=== PATIENT | male | born 1940 | race Caucasian/White ===

== ENCOUNTER 2016-11-26 00:21 | Emergency (ER) | payer OTHER ==
[~2016-11-26] VITALS: Ht 175.3 cm; Wt 95.3 kg
[2016-11-26 00:21] VITALS: BP_SYST 159
--- NOTE | 2016-11-26 00:22 | NUR ---
Patient to ED for evaluation of bleeding from surgical site. Patient to bed 8 to await MD evaluation.
--- NOTE | 2016-11-26 00:25 | NUR ---
Dr Stubbs at bedside to evaluate patient.
--- NOTE | 2016-11-26 00:30 | NUR ---
Patient to ER via triage with c/o bleeding from surgical site on right sidep of nose. Patient reports that he had a Mohs procedure done on Sunday. Patient states he woke up this evening and noticed the bleeding, no c/o pain. Dr Stubbs has seen and evaluated patient, dressing was applied to site by Dr/EMT. Patient resting quietly in nad, awaiting dispo. Will continue to observe and assess.
--- NOTE | 2016-11-26 01:10 | NUR ---
Patient given written and verbal discharge instructions and verbalizes understanding. ER MD discussed with patient the results and treatment provided. Patient in stable condition. ID arm band removed. Rx of Tramadol given. Patient educated on pain management and to follow up with PMD. Pain Scale 0. Opportunity for questions provided and answered.
[2016-11-26 01:17] VITALS: BP_SYST 127
== END 2016-11-26 01:17 | disposition home or self-care (01) ==
LOC: SED 00:21
DX: J95.831 Postprocedural hemorrhage of a respiratory system organ or structure following other procedure (principal); R03.0 Elevated blood-pressure reading, without diagnosis of hypertension; E11.9 Type 2 diabetes mellitus without complications; M54.30 Sciatica, unspecified side
CPT/HCPCS: 99283

== ENCOUNTER 2019-11-28 11:34 | Inpatient (IN) | payer OTHER, SELFPAY ==
[~2019-11-28] VITALS: Ht 175.3 cm; Wt 98.4 kg
[~2019-11-28 11:34] MED LIST: ATOR-1 PO; GLIP10TA11 PO; LISI40TA4 PO; LORA-258 PO; METF750T PO; METO100T14 PO; NPH,100V SUBCUT; OMEP20CA15 PO; PRAM1TAB4 PO; PRIM250T32 PO
[2019-11-28 11:39] VITALS: BP_SYST 178
[2019-11-28] MEDS ORDERED: ASPIRIN 81 MG TAB.CHEW PO ONE (12:00)
[2019-11-28] MEDS ORDERED: FAMOTIDINE PF 20 MG/2 ML VIAL IVP ONE (12:00)
[2019-11-28] MEDS ORDERED: NACL 0.9% 1,000 ML IV ONE (12:00)
[2019-11-28] MEDS ORDERED: fentaNYL CITRATE/PF 100 MCG/2 ML AMP IVP ONE ×2 (12:00→15:45)
[2019-11-28] MEDS ORDERED: CINSULIN (12:01)
[2019-11-28] MEDS ORDERED: AMIO200T4 PO (12:01)
[2019-11-28] MEDS ORDERED: FLUT250D PO (12:01)
[2019-11-28] MEDS ORDERED: GLIP5TAB26 PO (12:01)
[2019-11-28] MEDS ORDERED: METF750T46 PO (12:01)
[2019-11-28] MEDS ORDERED: ALBU90AE PO (12:01)
[2019-11-28] MEDS ORDERED: FURO-149 PO (12:01)
[2019-11-28] MEDS ORDERED: VITD2000 PO (12:01)
[2019-11-28] MEDS ORDERED: CYAN500L3 (12:01)
[2019-11-28] MEDS ORDERED: PRIM250T PO (12:01)
[2019-11-28] MEDS ORDERED: FERR-69 PO (12:01)
[2019-11-28] MEDS ORDERED: LEVO25TA11 PO (12:01)
[2019-11-28] MEDS ORDERED: CLOP75TA2 PO (12:01)
[2019-11-28] MEDS ORDERED: LISI40TA4 PO (12:01)
[2019-11-28] MEDS ORDERED: ROSU40TA23 PO (12:01)
[2019-11-28] MEDS ORDERED: METO200T49 PO (12:01)
[2019-11-28] MEDS ORDERED: NPH,100I SQ (12:01)
[2019-11-28] MEDS ORDERED: PRAM1TAB4 PO (12:01)
[2019-11-28 12:06] LABS: BASOPHILS # (AUTO) 0.1 K/uL (0.0-0.2); EOSINOPHILS # (AUTO) 0.1 K/uL (0.0-0.4); HEMATOCRIT 31.9 % (36-54); HEMOGLOBIN 10.6 g/dL (14.0-18.0); LYMPHOCYTES # (AUTO) 0.8 K/uL (1.0-5.5); LYMPHOCYTES % (AUTO) 7.8 % (20.5-51.5); MEAN CORPUSCULAR HEMOGLOBIN 31 pg (27-31); MEAN CORPUSCULAR HGB CONC 33 % (32-36); MEAN CORPUSCULAR VOLUME 93 fL (79.0-98.0); MONOCYTES # (AUTO) 0.7 K/uL (0.0-1.0); MONOCYTES % (AUTO) 6.4 % (1.7-9.3); NEUTROPHILS # (AUTO) 9.1 K/uL (1.8-7.7); NEUTROPHILS % (AUTO) 83.8 % (40.0-70.0); PLATELET COUNT (AUTO) 210 K/uL (130-430); RED BLOOD CELL COUNT(AUTO) 3.44 MIL/uL (4.2-6.2); RED CELL DISTRIBUTION WIDTH 16.4 % (9.0-15.0); WHITE BLOOD COUNT (AUTO) 10.8 K/uL (4.8-10.8)
[2019-11-28 12:26] LABS: ANION GAP 11 (5-15); CALCIUM 9.1 mg/dL (8.4-11.0); CHLORIDE 100 mmol/L (98-107); CREATININE 1.29 mg/dL (0.55-1.30); GLUCOSE 233 mg/dL (70-99); POTASSIUM 4.3 mmol/L (3.5-5.1); SODIUM SERUM 135 mmol/L (136-145); UREA NITROGEN, BLOOD 28 mg/dL (8-21)
[2019-11-28 12:32] LABS: ALANINE AMINOTRANSFERASE 31 U/L (12-78); ALBUMIN 3.7 g/dL (3.4-4.8); ASPARTATE AMINOTRANSFERASE 21 U/L (10-37); LIPASE 133 U/L (73-393); TOTAL BILIRUBIN 0.3 mg/dL (0.0-1.0)
[2019-11-28 12:53] LABS: BILIRUBIN,URINE NEGATIVE (NEGATIVE); BLOOD, URINE 1+ (NEGATIVE); CLARITY/URINE CLEAR (CLEAR); COLOR,URINE YELLOW (YELLOW); GLUCOSE,URINE 2+ (NEGATIVE); KETONES,URINE NEGATIVE (NEGATIVE); LEUKOCYTE ESTERASE ,URINE NEGATIVE (NEGATIVE); NITRITE, URINE NEGATIVE (NEGATIVE); PROTEIN URINE 2+ (NEGATIVE); UROBILINOGEN,URINE 0.2 (0.2-1.0)
[2019-11-28] MEDS ORDERED: MAG HYDROX/AL HYDROX/SIMETH 30 ML, DICYCLOMINE HCL 20 MG, LIDOCAINE VISCOUS 2% 15ML (PO... PO ONE ×6 (13:15)
[2019-11-28 13:22] LABS: BACTERIA,URINE None Seen /HPF (None Seen); RBC,URINE 0-3 /HPF (0-3); TRICHOMONAS,URINE None Seen /HPF (None Seen); WBC,URINE NONE SEEN /HPF (0-3); YEAST,URINE None Seen /HPF (None Seen)
[2019-11-28] MEDS ORDERED: METOPROLOL TARTRATE 5 MG/5 ML VIAL IVP ONE (16:00)
[2019-11-28] MEDS ORDERED: MORPHINE 4 MG/ML INJ. SYRINGE IVP PRN (19:15)
[2019-11-28] MEDS ORDERED: ALBUTEROL SULFATE 0.083% 2.5 MG/3 ML VIAL.NEB INH PRN (19:15)
[2019-11-28] MEDS ORDERED: ACETAMINOPHEN 325 MG TABLET PO PRN (19:15)
[2019-11-28] MEDS ORDERED: NALOXONE HCL 0.4 MG/ML AMP (NARCAN) IVP PRN (19:15)
[2019-11-28] MEDS ORDERED: hydrALAZINE HCL 20 MG/ML VIAL IVP PRN (19:30)
[2019-11-28 20:00] VITALS: BP_SYST 174
[2019-11-28 20:10] VITALS: BP_SYST 183
[2019-11-28 20:53] VITALS: BP_SYST 183
[2019-11-28] MEDS ORDERED: cefTRIAXone 1 GM IVPB PREMIX 50 ML IV ONE (21:19)
[2019-11-28] MEDS: PRAMIPEXOLE DI-HCL 0.25 MG TABLET PO SCH (21:26)
[2019-11-28] MEDS: cefTRIAXone 1 GM IVPB PREMIX 50 ML IV SCH (21:27)
[2019-11-28] MEDS: NACL 0.9% 1,000 ML IV SCH (21:28)
[2019-11-28] MEDS: INSULIN REGULAR, HUMAN 100 UNITS/ML, 10 ML VIAL (humuLIN R) SUBCUT PRN (21:30)
[2019-11-28] MEDS: MORPHINE 2 MG/ML INJ. SYRINGE IVP PRN (21:54)
[2019-11-28] MEDS: PRIMIDONE 250 MG TABLET PO SCH (21:54)
[2019-11-29] VITALS: BP_SYST 156
[2019-11-29] MEDS ORDERED: AMIODARONE HCL 200 MG TABLET PO ONE (00:15)
[2019-11-29] MEDS ORDERED: ZOLPIDEM TARTRATE 5 MG TABLET PO ONE (00:15)
[2019-11-29] MEDS ORDERED: DILTIAZEM HCL 25 MG/5 ML VIAL IVP ONE ×2 (00:15→04:15)
[2019-11-29 04:00] VITALS: BP_SYST 139
[2019-11-29] MEDS: LEVOTHYROXINE SODIUM 0.025 MG TABLET PO SCH (06:04)
[2019-11-29 06:16] LABS: BASOPHILS # (AUTO) 0.1 K/uL (0.0-0.2); BASOPHILS % (AUTO) 0.6 % (0.0-2.0); EOSINOPHILS # (AUTO) 0.1 K/uL (0.0-0.4); EOSINOPHILS % (AUTO) 0.8 % (0.0-4.0); HEMATOCRIT 32.1 % (36-54); HEMOGLOBIN 10.8 g/dL (14.0-18.0); LYMPHOCYTES # (AUTO) 0.8 K/uL (1.0-5.5); LYMPHOCYTES % (AUTO) 5.3 % (20.5-51.5); MEAN CORPUSCULAR HEMOGLOBIN 31 pg (27-31); MEAN CORPUSCULAR HGB CONC 34 % (32-36); MEAN CORPUSCULAR VOLUME 92 fL (79.0-98.0); MONOCYTES # (AUTO) 1.2 K/uL (0.0-1.0); MONOCYTES % (AUTO) 7.6 % (1.7-9.3); NEUTROPHILS # (AUTO) 13.3 K/uL (1.8-7.7); NEUTROPHILS % (AUTO) 85.7 % (40.0-70.0); PLATELET COUNT (AUTO) 227 K/uL (130-430); RED BLOOD CELL COUNT(AUTO) 3.49 MIL/uL (4.2-6.2); RED CELL DISTRIBUTION WIDTH 16.5 % (9.0-15.0); WHITE BLOOD COUNT (AUTO) 15.5 K/uL (4.8-10.8)
[2019-11-29] MEDS: INSULIN REGULAR, HUMAN 100 UNITS/ML, 10 ML VIAL (humuLIN R) SUBCUT PRN ×4 (06:25→21:34)
[2019-11-29 06:41] LABS: ALANINE AMINOTRANSFERASE 26 U/L (12-78); ALBUMIN 3.4 g/dL (3.4-4.8); ANION GAP 11 (5-15); ASPARTATE AMINOTRANSFERASE 14 U/L (10-37); CALCIUM 8.6 mg/dL (8.4-11.0); CHLORIDE 99 mmol/L (98-107); CREATININE 1.15 mg/dL (0.55-1.30); GLUCOSE 253 mg/dL (70-99); POTASSIUM 4.2 mmol/L (3.5-5.1); SODIUM SERUM 133 mmol/L (136-145); TOTAL BILIRUBIN 0.4 mg/dL (0.0-1.0); UREA NITROGEN, BLOOD 28 mg/dL (8-21)
[2019-11-29 08:10] VITALS: BP_SYST 142
[2019-11-29] MEDS: glipiZIDE XL 5 MG TAB ( GLUCOTROL XL) PO SCH ×2 (08:20→21:19)
[2019-11-29] MEDS: AMIODARONE HCL 200 MG TABLET PO SCH (08:21)
[2019-11-29] MEDS: CLOPIDOGREL BISULFATE 75 MG TABLET PO SCH (08:21)
[2019-11-29] MEDS: METOPROLOL SUCCINATE 50 MG TAB.SR.24H (TOPROL XL) PO SCH (08:21)
[2019-11-29] MEDS: lisinopriL 20 MG TABLET PO SCH (08:21)
[2019-11-29] MEDS: PRAMIPEXOLE DI-HCL 0.25 MG TABLET PO SCH ×2 (08:30→21:19)
[2019-11-29] MEDS ORDERED: PANTOPRAZOLE SODIUM 40 MG/VIAL (PROTONIX) IVP ONE (09:15)
[2019-11-29 11:44] VITALS: BP_SYST 139
[2019-11-29 17:17] VITALS: BP_SYST 150
[2019-11-29 20:00] VITALS: BP_SYST 144
[2019-11-29] MEDS: PRIMIDONE 250 MG TABLET PO SCH (21:19)
[2019-11-29] MEDS: MORPHINE 2 MG/ML INJ. SYRINGE IVP PRN (21:28)
[2019-11-29] MEDS: cefTRIAXone 1 GM IVPB PREMIX 50 ML IV SCH (21:33)
[2019-11-29] MEDS: NACL 0.9% 1,000 ML IV SCH (21:53)
[2019-11-30] VITALS: BP_SYST 132
[2019-11-30] MEDS: NACL 0.9% 1,000 ML IV SCH (03:04)
[2019-11-30] MEDS: LEVOTHYROXINE SODIUM 0.025 MG TABLET PO SCH (06:27)
[2019-11-30] MEDS: INSULIN REGULAR, HUMAN 100 UNITS/ML, 10 ML VIAL (humuLIN R) SUBCUT PRN ×2 (06:27→11:11)
[2019-11-30] MEDS ORDERED: DILTIAZEM HCL 25 MG/5 ML VIAL IVP ONE (07:00)
[2019-11-30] MEDS ORDERED: DILTIAZEM HCL 25 MG/5 ML VIAL ONE (07:15)
[2019-11-30 08:11] VITALS: BP_SYST 140
[2019-11-30] MEDS: AMIODARONE HCL 200 MG TABLET PO SCH (08:20)
[2019-11-30] MEDS: glipiZIDE XL 5 MG TAB ( GLUCOTROL XL) PO SCH (08:21)
[2019-11-30] MEDS: METOPROLOL SUCCINATE 50 MG TAB.SR.24H (TOPROL XL) PO SCH (08:21)
[2019-11-30] MEDS: lisinopriL 20 MG TABLET PO SCH (08:22)
[2019-11-30] MEDS: CLOPIDOGREL BISULFATE 75 MG TABLET PO SCH (08:22)
[2019-11-30] MEDS ORDERED: PANTOPRAZOLE SODIUM 40 MG/VIAL (PROTONIX) IVP SCH (09:00)
[2019-11-30] MEDS: PRAMIPEXOLE DI-HCL 0.25 MG TABLET PO SCH (09:30)
[2019-11-30 11:15] VITALS: BP_SYST 125
[2019-11-30] MEDS ORDERED: DILTIAZEM HCL 120 MG CAP.SR.24H PO ONE (13:00)
[2019-11-30 13:22] VITALS: BP_SYST 119
[2019-11-30] MEDS ORDERED: DILT120C89 PO (14:42)
[2019-11-30] MEDS ORDERED: PRO40 PO (14:42)
[2019-11-30] MEDS ORDERED: METO50TA7 PO (14:44)
[2019-11-30] MEDS ORDERED: LEVO750T45 PO ×2 (14:44→14:46)
[2019-11-30] MEDS ORDERED: APIX5TAB4 PO (14:45)
[2019-11-30] MEDS ORDERED: APIX5TAB PO (14:49)
[2019-11-30 15:09] VITALS: BP_SYST 119
== END 2019-11-30 16:30 | disposition home or self-care (01) | DRG 392 ==
LOC: SED 11:34 → STU 17:37
PROVIDERS: ADMIT Internal Medicine Hospice and Palliative Medicine; ATTEND Internal Medicine Hospice and Palliative Medicine
DX: K29.70 Gastritis, unspecified, without bleeding (principal); K55.9 Vascular disorder of intestine, unspecified; I48.0 Paroxysmal atrial fibrillation; D64.9 Anemia, unspecified; E03.9 Hypothyroidism, unspecified; E11.9 Type 2 diabetes mellitus without complications; E66.01 Morbid (severe) obesity due to excess calories; E78.00 Pure hypercholesterolemia, unspecified; Z20.828 Contact with and (suspected) exposure to other viral communicable diseases; E78.5 Hyperlipidemia, unspecified; G25.0 Essential tremor; I10 Essential (primary) hypertension; I25.10 Atherosclerotic heart disease of native coronary artery without angina pectoris; I45.10 Unspecified right bundle-branch block; K21.0 Gastro-esophageal reflux disease with esophagitis; K42.9 Umbilical hernia without obstruction or gangrene; Z90.49 Acquired absence of other specified parts of digestive tract; Z95.1 Presence of aortocoronary bypass graft; Z68.32 Body mass index [BMI] 32.0-32.9, adult
CPT/HCPCS: 36415; 71045; 80053; 81000-TC; 82550-TC; 82962; 83690-TC; 83880; 84484; 85025; 93005; 94760; 96361; 96374; 96375; 96376; 99285; C9113; G0378; J0360; J0696; J1815; J2001; J2270; J3010; J3490; J7030; Q9967

== ENCOUNTER 2020-10-31 02:56 | Emergency (ER) | payer OTHER, SELFPAY ==
[~2020-10-31] VITALS: Ht 170.2 cm; Wt 99.8 kg
[~2020-10-31 02:56] MED LIST changes: +ALBU90AE PO; +AMIO200T5 PO; +APIX5TAB4 PO; -ATOR-1 PO; +CLOP75TA2 PO; +CYAN500L3; +DILT120C89 PO; +FERR-69 PO; +FLUT250D PO; +FURO-149 PO; -GLIP10TA11 PO; +GLIP5TAB26 PO; +LEVO25TA11 PO; +LEVO750T45 PO; +LISI40TA15 PO; -LISI40TA4 PO; -LORA-258 PO; -METF750T PO; +METF750T46 PO; -METO100T14 PO; +METO50TA7 PO; -NPH,100V SUBCUT; -OMEP20CA15 PO; +PRIM250T PO; -PRIM250T32 PO; +PRO40 PO; +VITD2000 PO
--- NOTE | 2020-10-31 03:20 | NUR ---
Patient to ER bed 4 to gown for evaluation. Side rails up. Report given to NICOLAS ELISE.
--- NOTE | 2020-10-31 03:21 | NUR ---
Came in ER ambulatory from home this 79 year old male, AAOX4, breathing spontaneously at room air, not in distress noted, with chief complaints of lower back pain for several days, worsened tonight,known with COPD, htn, hld, thyroid, s/p CABG. Viyal signs stable
[2020-10-31 03:24] VITALS: BP_SYST 144
--- NOTE | 2020-10-31 03:28 | NUR ---
Seen and examined by Dr. SALAS, ER ATTENDING
[2020-10-31] MEDS ORDERED: MORPHINE 4 MG INJ. 4 MG/ML VIAL IM ONE (03:45)
[2020-10-31] MEDS ORDERED: HYDR-3917 PO ×2 (03:48→04:03)
[2020-10-31] MEDS ORDERED: IBUP800T54 PO ×2 (03:48→04:03)
--- NOTE | 2020-10-31 04:00 | NUR ---
Medication given as ordered, health teaching provided and verbalized understanding
[2020-10-31 04:05] VITALS: BP_SYST 144
--- NOTE | 2020-10-31 04:05 | NUR ---
Patient given written and verbal discharge instructions and verbalizes understanding. ER MD discussed with patient the results and treatment provided. Patient in stable condition. ID arm band removed. Rx of NORCO AND MOTRIN given. Patient educated on pain management and to follow up with PMD. Pain Scale 3/10. Opportunity for questions provided and answered. Medication side effect fact sheet provided.
== END 2020-10-31 04:05 | disposition home or self-care (01) ==
LOC: SED 02:56
DX: M54.5 Low back pain (principal); I10 Essential (primary) hypertension; E11.9 Type 2 diabetes mellitus without complications; Z79.899 Other long term (current) drug therapy
CPT/HCPCS: 96372; 99283; J2270

== ENCOUNTER 2020-11-18 00:49 | Inpatient (IN) | payer OTHER, SELFPAY ==
[~2020-11-18] VITALS: Ht 175.3 cm; Wt 72.6 kg
[2020-11-18] VITALS (20 sets, daily range): BP systolic 91–152
[~2020-11-18 00:49] MED LIST changes: +HYDR-3917 PO; +IBUP800T54 PO
[2020-11-18] MEDS ORDERED: NOREPINEPHRINE BITARTRATE 4 MG in NS 246 ML IV ONE (01:15)
[2020-11-18] MEDS ORDERED: NOREPINEPHRINE 4 MG/4 ML VIAL IV ONE (01:20)
[2020-11-18] MEDS ORDERED: VANCOMYCIN HCL 1,000 MG in NS 250 ML IV ONE (01:30)
[2020-11-18] MEDS ORDERED: LEVOFLOXACIN IN DEXTROSE 5 % 100 ML IV ONE (01:30)
[2020-11-18] MEDS ORDERED: KETOROLAC TROMETHAMINE 30 MG VIAL IVP ONE (01:30)
[2020-11-18] MEDS ORDERED: VANCOMYCIN HCL 1000 MG/VIAL IV ONE (01:36)
[2020-11-18 01:55] LABS: BASOPHILS # (AUTO) 0.1 K/uL (0.0-0.2); BASOPHILS % (AUTO) 0.6 % (0.0-2.0); EOSINOPHILS # (AUTO) 0.3 K/uL (0.0-0.4); EOSINOPHILS % (AUTO) 2.5 % (0.0-4.0); HEMATOCRIT 25.8 % (36-54); HEMOGLOBIN 8.7 g/dL (14.0-18.0); LYMPHOCYTES # (AUTO) 0.9 K/uL (1.0-5.5); LYMPHOCYTES % (AUTO) 9.5 % (20.5-51.5); MEAN CORPUSCULAR HEMOGLOBIN 33 pg (27-31); MEAN CORPUSCULAR HGB CONC 34 % (32-36); MEAN CORPUSCULAR VOLUME 97 fL (79.0-98.0); MONOCYTES # (AUTO) 0.7 K/uL (0.0-1.0); MONOCYTES % (AUTO) 7.2 % (1.7-9.3); NEUTROPHILS # (AUTO) 7.9 K/uL (1.8-7.7); NEUTROPHILS % (AUTO) 80.2 % (40.0-70.0); PLATELET COUNT (AUTO) 209 K/uL (130-430); RED BLOOD CELL COUNT(AUTO) 2.68 MIL/uL (4.2-6.2); RED CELL DISTRIBUTION WIDTH 17.7 % (9.0-15.0); WHITE BLOOD COUNT (AUTO) 9.9 K/uL (4.8-10.8)
[2020-11-18 02:06] LABS: ANION GAP 13 (5-15); CALCIUM 8.7 mg/dL (8.4-11.0); CHLORIDE 109 mmol/L (98-107); CREATININE 3.07 mg/dL (0.55-1.30); GLUCOSE 129 mg/dL (70-99); POTASSIUM 5.9 mmol/L (3.5-5.1); SODIUM SERUM 137 mmol/L (136-145); UREA NITROGEN, BLOOD 99 mg/dL (8-21)
[2020-11-18 02:12] LABS: ALANINE AMINOTRANSFERASE 56 U/L (12-78); ALBUMIN 3.3 g/dL (3.4-4.8); ASPARTATE AMINOTRANSFERASE 31 U/L (10-37); TOTAL BILIRUBIN 0.2 mg/dL (0.0-1.0)
[2020-11-18 02:22] LABS: BILIRUBIN,URINE NEGATIVE (NEGATIVE); BLOOD, URINE 1+ (NEGATIVE); CLARITY/URINE CLEAR (CLEAR); COLOR,URINE YELLOW (YELLOW); GLUCOSE,URINE NEGATIVE (NEGATIVE); KETONES,URINE NEGATIVE (NEGATIVE); LEUKOCYTE ESTERASE ,URINE NEGATIVE (NEGATIVE); NITRITE, URINE NEGATIVE (NEGATIVE); PROTEIN URINE NEGATIVE (NEGATIVE); UROBILINOGEN,URINE 0.2 (0.2-1.0)
[2020-11-18 02:40] LABS: BACTERIA,URINE FEW /HPF (None Seen); WBC,URINE 0-3 /HPF (0-3)
[2020-11-18] MEDS ORDERED: SODIUM POLYSTYRENE SULFONATE 15 GM/60 ML UDBTL PO ONE (02:45)
[2020-11-18] MEDS ORDERED: LEVO-98 PO (03:57)
[2020-11-18] MEDS ORDERED: METO200T49 PO (03:57)
[2020-11-18] MEDS ORDERED: LISI30TA36 PO (03:57)
[2020-11-18] MEDS ORDERED: NPH,100V2 SQ (03:57)
[2020-11-18] MEDS ORDERED: PRAM2.252 PO (03:57)
[2020-11-18] MEDS ORDERED: FURO-150 PO (03:57)
[2020-11-18] MEDS ORDERED: ROSU40TA23 PO (03:57)
[2020-11-18] MEDS ORDERED: TOPXL100 PO (03:57)
[2020-11-18] MEDS ORDERED: GLIP10TA3 PO (03:57)
[2020-11-18] MEDS ORDERED: AMIO100T4 PO (03:57)
[2020-11-18] MEDS ORDERED: HYDROcodone/ACETAMIN 5-325 MG TAB (NORCO/ VICODIN) PO PRN (04:45)
[2020-11-18] MEDS ORDERED: NACL 0.9% 1,000 ML IV ONE (05:00)
[2020-11-18] MEDS ORDERED: SODIUM POLYSTYRENE SULFONATE 15 GM/60 ML UDBTL ONE (05:01)
[2020-11-18] MEDS ORDERED: PIPERACILLIN/TAZO 3.375/DEX-IS 50 ML IV SCH (06:00)
[2020-11-18] MEDS: NACL 0.9% 1,000 ML IV SCH ×3 (07:04→21:01)
[2020-11-18] MEDS ORDERED: TRAM100T28 PO (07:58)
[2020-11-18] MEDS ORDERED: BACL10TA PO (07:58)
[2020-11-18] MEDS ORDERED: GABA-529 PO (07:58)
[2020-11-18 09:55] LABS: BASOPHILS # (AUTO) 0.1 K/uL (0.0-0.2); BASOPHILS % (AUTO) 0.6 % (0.0-2.0); EOSINOPHILS # (AUTO) 0.2 K/uL (0.0-0.4); EOSINOPHILS % (AUTO) 2.3 % (0.0-4.0); HEMATOCRIT 25.7 % (36-54); HEMOGLOBIN 8.6 g/dL (14.0-18.0); LYMPHOCYTES # (AUTO) 0.7 K/uL (1.0-5.5); LYMPHOCYTES % (AUTO) 8.6 % (20.5-51.5); MEAN CORPUSCULAR HEMOGLOBIN 32 pg (27-31); MEAN CORPUSCULAR HGB CONC 33 % (32-36); MEAN CORPUSCULAR VOLUME 96 fL (79.0-98.0); MONOCYTES # (AUTO) 0.6 K/uL (0.0-1.0); MONOCYTES % (AUTO) 7.5 % (1.7-9.3); NEUTROPHILS # (AUTO) 6.8 K/uL (1.8-7.7); PLATELET COUNT (AUTO) 165 K/uL (130-430); RED BLOOD CELL COUNT(AUTO) 2.66 MIL/uL (4.2-6.2); RED CELL DISTRIBUTION WIDTH 17.1 % (9.0-15.0); WHITE BLOOD COUNT (AUTO) 8.4 K/uL (4.8-10.8)
[2020-11-18 10:13] LABS: INR 1.1 (0.80-1.20); PROTHROMBIN TIME 11.5 SECS (9.5-12.5)
[2020-11-18 10:14] LABS: TOTAL IRON BIND. CAPACITY 161 ug/dL (250-450)
[2020-11-18 10:29] LABS: ALANINE AMINOTRANSFERASE 57 U/L (12-78); ALBUMIN 2.8 g/dL (3.4-4.8); ANION GAP 12 (5-15); ASPARTATE AMINOTRANSFERASE 57 U/L (10-37); CALCIUM 7.9 mg/dL (8.4-11.0); CHLORIDE 112 mmol/L (98-107); CREATININE 2.24 mg/dL (0.55-1.30); GLUCOSE 284 mg/dL (70-99); POTASSIUM 4.9 mmol/L (3.5-5.1); SODIUM SERUM 141 mmol/L (136-145); TOTAL BILIRUBIN 0.2 mg/dL (0.0-1.0); UREA NITROGEN, BLOOD 83 mg/dL (8-21)
[2020-11-18] MEDS: PIPERACILLIN/TAZO 2.25G/DEX-IS 50 ML IV SCH ×2 (11:02→22:57)
[2020-11-18 11:04] LABS: CKMB RELATIVE INDEX 2.4 (0.0-2.9); CREATINE KINASE MB 50.2 ng/mL (0-3.6)
[2020-11-18] MEDS ORDERED: NOREPINEPHRINE BITARTRATE 4 MG in D5W 246 ML IV SCH (12:15)
[2020-11-18] MEDS ORDERED: NOREPINEPHRINE BITARTRATE 4 MG in NS 246 ML IV SCH (12:29)
[2020-11-18] MEDS ORDERED: ASPIRIN 81 MG TAB.CHEW PO ONE (13:45)
[2020-11-18] MEDS ORDERED: ATORVASTATIN 20 MG TABLET PO SCH (13:45)
[2020-11-18] MEDS: APIXABAN 2.5 MG TABLET PO SCH (21:00)
[2020-11-19] VITALS (24 sets, daily range): BP systolic 93–166
[2020-11-19] MEDS: NACL 0.9% 1,000 ML IV SCH ×2 (04:45→14:23)
[2020-11-19 06:19] LABS: BASOPHILS # (AUTO) 0.1 K/uL (0.0-0.2); BASOPHILS % (AUTO) 0.7 % (0.0-2.0); EOSINOPHILS # (AUTO) 0.3 K/uL (0.0-0.4); EOSINOPHILS % (AUTO) 3.9 % (0.0-4.0); HEMATOCRIT 25.6 % (36-54); HEMOGLOBIN 8.6 g/dL (14.0-18.0); LYMPHOCYTES # (AUTO) 0.8 K/uL (1.0-5.5); LYMPHOCYTES % (AUTO) 9.4 % (20.5-51.5); MEAN CORPUSCULAR HEMOGLOBIN 32 pg (27-31); MEAN CORPUSCULAR HGB CONC 34 % (32-36); MEAN CORPUSCULAR VOLUME 95 fL (79.0-98.0); MONOCYTES # (AUTO) 0.5 K/uL (0.0-1.0); MONOCYTES % (AUTO) 6.7 % (1.7-9.3); NEUTROPHILS # (AUTO) 6.5 K/uL (1.8-7.7); NEUTROPHILS % (AUTO) 79.3 % (40.0-70.0); PLATELET COUNT (AUTO) 169 K/uL (130-430); RED CELL DISTRIBUTION WIDTH 17.2 % (9.0-15.0); WHITE BLOOD COUNT (AUTO) 8.2 K/uL (4.8-10.8)
[2020-11-19 06:41] LABS: ALANINE AMINOTRANSFERASE 64 U/L (12-78); ALBUMIN 2.7 g/dL (3.4-4.8); ANION GAP 11 (5-15); ASPARTATE AMINOTRANSFERASE 48 U/L (10-37); CALCIUM 8.2 mg/dL (8.4-11.0); CHLORIDE 111 mmol/L (98-107); CREATININE 1.46 mg/dL (0.55-1.30); GLUCOSE 135 mg/dL (70-99); POTASSIUM 4.8 mmol/L (3.5-5.1); SODIUM SERUM 141 mmol/L (136-145); TOTAL BILIRUBIN 0.3 mg/dL (0.0-1.0); UREA NITROGEN, BLOOD 50 mg/dL (8-21)
[2020-11-19] MEDS: PIPERACILLIN/TAZO 2.25G/DEX-IS 50 ML IV SCH ×3 (07:02→22:52)
[2020-11-19] MEDS: LEVOTHYROXINE SODIUM 0.05 MG TABLET PO SCH (07:02)
[2020-11-19] MEDS ORDERED: METOPROLOL TARTRATE 5 MG/5 ML AMPUL IVP ONE ×2 (08:15→10:30)
[2020-11-19] MEDS ORDERED: DOCUSATE SODIUM 100 MG CAPSULE PO ONE (08:30)
[2020-11-19] MEDS ORDERED: FUROSEMIDE 40 MG/4 ML VIAL IVP ONE (08:45)
[2020-11-19] MEDS: APIXABAN 2.5 MG TABLET PO SCH ×2 (08:50→21:40)
[2020-11-19] MEDS: ATORVASTATIN 20 MG TABLET PO SCH (08:54)
[2020-11-19] MEDS: AMIODARONE HCL 200 MG TABLET PO SCH ×2 (08:54→21:40)
[2020-11-19] MEDS ORDERED: AMIODARONE HCL 200 MG TABLET PO SCH (09:00)
[2020-11-19] MEDS ORDERED: METOPROLOL TARTRATE 25 MG TABLET PO ONE (10:30)
[2020-11-19] MEDS: FUROSEMIDE 40 MG/4 ML VIAL IVP SCH (21:39)
[2020-11-19] MEDS: METOPROLOL TARTRATE 25 MG TABLET PO SCH (21:41)
[2020-11-20] VITALS (24 sets, daily range): BP systolic 113–169
[2020-11-20] MEDS ORDERED: DILTIAZEM HCL 25 MG/5 ML VIAL IVP ONE (00:30)
[2020-11-20] MEDS: PIPERACILLIN/TAZO 2.25G/DEX-IS 50 ML IV SCH ×3 (06:30→22:19)
[2020-11-20] MEDS: AMIODARONE HCL 200 MG TABLET PO SCH ×2 (08:44→20:49)
[2020-11-20] MEDS: ATORVASTATIN 20 MG TABLET PO SCH (08:45)
[2020-11-20] MEDS: LEVOTHYROXINE SODIUM 0.05 MG TABLET PO SCH (08:45)
[2020-11-20] MEDS: APIXABAN 2.5 MG TABLET PO SCH ×2 (08:45→20:51)
[2020-11-20] MEDS: METOPROLOL TARTRATE 25 MG TABLET PO SCH ×2 (08:46→20:50)
[2020-11-20] MEDS: FUROSEMIDE 40 MG/4 ML VIAL IVP SCH ×2 (08:47→20:49)
[2020-11-20] MEDS ORDERED: ALBUMIN HUMAN 5% 250 ML IV ONE (10:00)
[2020-11-20] MEDS: NACL 0.9% 1,000 ML IV SCH (15:55)
[2020-11-21] VITALS (13 sets, daily range): BP systolic 125–167
[2020-11-21] MEDS: PIPERACILLIN/TAZO 2.25G/DEX-IS 50 ML IV SCH ×3 (06:02→21:16)
[2020-11-21] MEDS: LEVOTHYROXINE SODIUM 0.05 MG TABLET PO SCH (06:24)
[2020-11-21 08:09] LABS: BASOPHILS # (AUTO) 0.1 K/uL (0.0-0.2); BASOPHILS % (AUTO) 0.6 % (0.0-2.0); EOSINOPHILS # (AUTO) 0.3 K/uL (0.0-0.4); EOSINOPHILS % (AUTO) 3.6 % (0.0-4.0); HEMATOCRIT 25.9 % (36-54); HEMOGLOBIN 8.8 g/dL (14.0-18.0); LYMPHOCYTES # (AUTO) 0.8 K/uL (1.0-5.5); LYMPHOCYTES % (AUTO) 9.3 % (20.5-51.5); MEAN CORPUSCULAR HEMOGLOBIN 32 pg (27-31); MEAN CORPUSCULAR HGB CONC 34 % (32-36); MEAN CORPUSCULAR VOLUME 94 fL (79.0-98.0); MONOCYTES # (AUTO) 0.7 K/uL (0.0-1.0); MONOCYTES % (AUTO) 8.3 % (1.7-9.3); NEUTROPHILS # (AUTO) 6.8 K/uL (1.8-7.7); NEUTROPHILS % (AUTO) 78.2 % (40.0-70.0); PLATELET COUNT (AUTO) 186 K/uL (130-430); RED BLOOD CELL COUNT(AUTO) 2.76 MIL/uL (4.2-6.2); RED CELL DISTRIBUTION WIDTH 16.9 % (9.0-15.0); WHITE BLOOD COUNT (AUTO) 8.8 K/uL (4.8-10.8)
[2020-11-21] MEDS: AMIODARONE HCL 200 MG TABLET PO SCH ×2 (08:10→21:17)
[2020-11-21] MEDS: FUROSEMIDE 40 MG/4 ML VIAL IVP SCH (08:10)
[2020-11-21] MEDS: APIXABAN 2.5 MG TABLET PO SCH ×2 (08:11→21:18)
[2020-11-21] MEDS: ATORVASTATIN 20 MG TABLET PO SCH (08:12)
[2020-11-21] MEDS: METOPROLOL TARTRATE 25 MG TABLET PO SCH ×2 (08:12→21:17)
[2020-11-21 09:08] LABS: ANION GAP 13 (5-15); C-REACTIVE PROTEIN QUANT 9.5 mg/dL (0-0.5); CALCIUM 8.8 mg/dL (8.4-11.0); CHLORIDE 108 mmol/L (98-107); CREATININE 1.33 mg/dL (0.55-1.30); GLUCOSE 209 mg/dL (70-99); PHOSPHORUS 3.2 mg/dL (2.7-4.5); POTASSIUM 3.7 mmol/L (3.5-5.1); SODIUM SERUM 140 mmol/L (136-145); UREA NITROGEN, BLOOD 30 mg/dL (8-21)
[2020-11-21] MEDS ORDERED: NACL 0.9% 1,000 ML IV ONE (11:00)
[2020-11-21] MEDS: NACL 0.9% 1,000 ML IV SCH (11:17)
[2020-11-21 12:05] LABS: ERYTHROCYTE SEDIMENTATION RATE 111 MM/HR (0-15)
[2020-11-22 00:02] VITALS: BP_SYST 112; BP_SYST 140
[2020-11-22] MEDS: PIPERACILLIN/TAZO 2.25G/DEX-IS 50 ML IV SCH (06:48)
[2020-11-22] MEDS: LEVOTHYROXINE SODIUM 0.05 MG TABLET PO SCH (06:48)
[2020-11-22 07:24] LABS: BASOPHILS # (AUTO) 0.1 K/uL (0.0-0.2); BASOPHILS % (AUTO) 0.6 % (0.0-2.0); EOSINOPHILS # (AUTO) 0.3 K/uL (0.0-0.4); EOSINOPHILS % (AUTO) 2.9 % (0.0-4.0); HEMOGLOBIN 8.7 g/dL (14.0-18.0); LYMPHOCYTES # (AUTO) 0.9 K/uL (1.0-5.5); LYMPHOCYTES % (AUTO) 8.9 % (20.5-51.5); MEAN CORPUSCULAR HEMOGLOBIN 32 pg (27-31); MEAN CORPUSCULAR HGB CONC 33 % (32-36); MEAN CORPUSCULAR VOLUME 95 fL (79.0-98.0); MONOCYTES # (AUTO) 0.7 K/uL (0.0-1.0); MONOCYTES % (AUTO) 7.2 % (1.7-9.3); NEUTROPHILS # (AUTO) 8.4 K/uL (1.8-7.7); NEUTROPHILS % (AUTO) 80.4 % (40.0-70.0); PLATELET COUNT (AUTO) 198 K/uL (130-430); RED BLOOD CELL COUNT(AUTO) 2.75 MIL/uL (4.2-6.2); RED CELL DISTRIBUTION WIDTH 17.1 % (9.0-15.0); WHITE BLOOD COUNT (AUTO) 10.4 K/uL (4.8-10.8)
[2020-11-22 08:10] LABS: ALANINE AMINOTRANSFERASE 55 U/L (12-78); ALBUMIN 2.6 g/dL (3.4-4.8); ANION GAP 14 (5-15); ASPARTATE AMINOTRANSFERASE 32 U/L (10-37); C-REACTIVE PROTEIN QUANT 9.5 mg/dL (0-0.5); CALCIUM 8.4 mg/dL (8.4-11.0); CHLORIDE 106 mmol/L (98-107); CREATININE 1.15 mg/dL (0.55-1.30); GLUCOSE 233 mg/dL (70-99); POTASSIUM 3.8 mmol/L (3.5-5.1); SODIUM SERUM 139 mmol/L (136-145); TOTAL BILIRUBIN 0.4 mg/dL (0.0-1.0); UREA NITROGEN, BLOOD 22 mg/dL (8-21)
[2020-11-22 08:12] VITALS: BP_SYST 150
[2020-11-22] MEDS: NACL 0.9% 1,000 ML IV SCH (08:27)
[2020-11-22] MEDS: ATORVASTATIN 20 MG TABLET PO SCH (08:28)
[2020-11-22] MEDS: METOPROLOL TARTRATE 25 MG TABLET PO SCH ×2 (08:28→21:25)
[2020-11-22] MEDS: AMIODARONE HCL 200 MG TABLET PO SCH ×2 (08:28→21:25)
[2020-11-22] MEDS: APIXABAN 2.5 MG TABLET PO SCH ×2 (08:30→21:27)
[2020-11-22 11:27] LABS: ERYTHROCYTE SEDIMENTATION RATE 111 MM/HR (0-15)
[2020-11-22 12:00] VITALS: BP_SYST 138
[2020-11-22] MEDS ORDERED: METOPROLOL TARTRATE 5 MG/5 ML AMPUL IVP ONE (14:45)
[2020-11-22 16:00] VITALS: BP_SYST 134
[2020-11-22 20:00] VITALS: BP_SYST 157
[2020-11-23 05:15] VITALS: BP_SYST 144
[2020-11-23] MEDS: NACL 0.9% 1,000 ML IV SCH ×2 (05:16→23:06)
[2020-11-23] MEDS ORDERED: POTASSIUM CHLORIDE 20 MEQ/PKT PACKET PO ONE (06:30)
[2020-11-23] MEDS ORDERED: MAGNESIUM SULFATE 1 GM/2 ML VIAL IVP ONE (06:30)
[2020-11-23] MEDS ORDERED: MAGNESIUM SUL 2 GM/50 ML PREMIX IV ONE (06:45)
[2020-11-23] MEDS: LEVOTHYROXINE SODIUM 0.05 MG TABLET PO SCH (06:59)
[2020-11-23] MEDS ORDERED: DILTIAZEM HCL 25 MG/5 ML VIAL IVP ONE (07:40)
[2020-11-23 08:00] VITALS: BP_SYST 144
[2020-11-23] MEDS: ATORVASTATIN 20 MG TABLET PO SCH (08:25)
[2020-11-23] MEDS: METOPROLOL TARTRATE 25 MG TABLET PO SCH (08:26)
[2020-11-23] MEDS: AMIODARONE HCL 200 MG TABLET PO SCH ×2 (08:26→21:16)
[2020-11-23] MEDS: APIXABAN 2.5 MG TABLET PO SCH ×2 (08:27→21:17)
[2020-11-23] MEDS ORDERED: FUROSEMIDE 40 MG TABLET PO SCH (09:00)
[2020-11-23 11:28] VITALS: BP_SYST 133
[2020-11-23] MEDS ORDERED: DILTIAZEM HCL 240 MG CAP.SR.24H PO ONE (11:30)
[2020-11-23 15:25] VITALS: BP_SYST 127
[2020-11-23 15:26] VITALS: BP_SYST 120
[2020-11-23] MEDS ORDERED: METOPROLOL SUCCINATE 50 MG TAB.SR.24H (TOPROL XL) PO ONE (18:30)
[2020-11-23] MEDS ORDERED: ZOLPIDEM TARTRATE 5 MG TABLET PO PRN (18:30)
[2020-11-23] MEDS ORDERED: LORazepam 1 MG TABLET PO PRN (18:30)
[2020-11-23] MEDS ORDERED: METOPROLOL TARTRATE 50 MG TABLET PO ONE (19:00)
[2020-11-23] MEDS ORDERED: COMMUNICATION ORDER XX ONE (19:15)
[2020-11-23 20:00] VITALS: BP_SYST 136
[2020-11-23] MEDS ORDERED: METOPROLOL TARTRATE 50 MG TABLET PO SCH (21:00)
[2020-11-23] MEDS ORDERED: ALBUTEROL SULFATE 0.083% 2.5 MG/3 ML VIAL.NEB INH ONE (23:05)
[2020-11-23] MEDS ORDERED: IPRATROPIUM BROM 0.5 MG/2.5 ML VIAL.NEB (ATROVENT) INH ONE (23:05)
[2020-11-23] MEDS ORDERED: IPRATROPIUM/ALBUTEROL SULFATE 3 ML AMPUL.NEB (DUONEB) INH PRN (23:15)
[2020-11-23] MEDS ORDERED: DIPHENHYDRAMINE INJ 50 MG/ML VIAL IVP ONE (23:30)
[2020-11-24] VITALS (7 sets, daily range): BP systolic 97–127
[2020-11-24] MEDS ORDERED: methylPREDNISolone SOD SUCC/PF 62.5 MG/ML VIAL IVP ONE (00:30)
[2020-11-24] MEDS: INSULIN REGULAR, HUMAN 100 UNITS/ML, 10 ML VIAL (humuLIN R) SUBCUT PRN ×5 (00:34→22:36)
[2020-11-24] MEDS ORDERED: FUROSEMIDE 40 MG/4 ML VIAL IVP ONE (04:30)
[2020-11-24] MEDS: LEVOTHYROXINE SODIUM 0.05 MG TABLET PO SCH (06:06)
[2020-11-24 07:23] LABS: ANION GAP 14 (5-15); CALCIUM 8.5 mg/dL (8.4-11.0); CHLORIDE 101 mmol/L (98-107); GLUCOSE 353 mg/dL (70-99); POTASSIUM 4.8 mmol/L (3.5-5.1); SODIUM SERUM 132 mmol/L (136-145); UREA NITROGEN, BLOOD 35 mg/dL (8-21)
[2020-11-24] MEDS: AMIODARONE HCL 200 MG TABLET PO SCH ×3 (08:31→21:48)
[2020-11-24] MEDS: ATORVASTATIN 20 MG TABLET PO SCH (08:31)
[2020-11-24] MEDS: APIXABAN 2.5 MG TABLET PO SCH ×2 (08:35→21:50)
[2020-11-24] MEDS: METOPROLOL TARTRATE 50 MG TABLET PO SCH ×2 (08:48→21:48)
[2020-11-24] MEDS ORDERED: FUROSEMIDE 40 MG/4 ML VIAL IVP SCH (09:00)
[2020-11-24] MEDS ORDERED: DILTIAZEM HCL 240 MG CAP.SR.24H PO SCH (09:00)
[2020-11-24] MEDS ORDERED: PRAMIPEXOLE DI HCL 1 MG PO SCH (11:00)
[2020-11-24] MEDS ORDERED: PRAM1TAB5 PO (11:35)
[2020-11-24] MEDS: INSULIN GLARGINE 100 UNITS/ML 10 ML VIAL SUBCUT SCH (11:40)
[2020-11-24] MEDS: PIPERACILLIN/TAZO 3.375/DEX-IS 50 ML IV SCH ×2 (11:51→17:27)
[2020-11-24] MEDS: PRAMIPEXOLE DI-HCL 1 MG TABLET PO SCH ×3 (11:52→21:49)
[2020-11-24] MEDS: FUROSEMIDE 40 MG/4 ML VIAL IVP SCH ×2 (15:00→21:47)
[2020-11-24] MEDS: NACL 0.9% 1,000 ML IV SCH (15:35)
[2020-11-24 17:18] LABS: BASOPHILS % (AUTO) 0.1 % (0.0-2.0); HEMOGLOBIN 8.5 g/dL (14.0-18.0); LYMPHOCYTES # (AUTO) 0.7 K/uL (1.0-5.5); MEAN CORPUSCULAR HEMOGLOBIN 31 pg (27-31); MEAN CORPUSCULAR HGB CONC 33 % (32-36); MEAN CORPUSCULAR VOLUME 96 fL (79.0-98.0); MONOCYTES % (AUTO) 5.5 % (1.7-9.3); NEUTROPHILS # (AUTO) 15.8 K/uL (1.8-7.7); NEUTROPHILS % (AUTO) 90.4 % (40.0-70.0); PLATELET COUNT (AUTO) 284 K/uL (130-430); RED BLOOD CELL COUNT(AUTO) 2.71 MIL/uL (4.2-6.2); RED CELL DISTRIBUTION WIDTH 17.1 % (9.0-15.0); WHITE BLOOD COUNT (AUTO) 17.5 K/uL (4.8-10.8)
[2020-11-24 17:34] LABS: ANION GAP 13 (5-15); CHLORIDE 101 mmol/L (98-107); CREATININE 2.33 mg/dL (0.55-1.30); GLUCOSE 273 mg/dL (70-99); POTASSIUM 4.7 mmol/L (3.5-5.1); SODIUM SERUM 133 mmol/L (136-145); UREA NITROGEN, BLOOD 53 mg/dL (8-21)
[2020-11-25] MEDS: PIPERACILLIN/TAZO 3.375/DEX-IS 50 ML IV SCH ×4 (00:15→17:38)
[2020-11-25 06:38] LABS: ALANINE AMINOTRANSFERASE 52 U/L (12-78); ALBUMIN 2.5 g/dL (3.4-4.8); ANION GAP 11 (5-15); ASPARTATE AMINOTRANSFERASE 27 U/L (10-37); CALCIUM 8.1 mg/dL (8.4-11.0); CHLORIDE 100 mmol/L (98-107); CREATININE 2.29 mg/dL (0.55-1.30); GLUCOSE 253 mg/dL (70-99); POTASSIUM 4.4 mmol/L (3.5-5.1); SODIUM SERUM 133 mmol/L (136-145); TOTAL BILIRUBIN 0.2 mg/dL (0.0-1.0); UREA NITROGEN, BLOOD 60 mg/dL (8-21)
[2020-11-25] MEDS: LEVOTHYROXINE SODIUM 0.05 MG TABLET PO SCH (06:50)
[2020-11-25] MEDS ORDERED: FUROSEMIDE 40 MG/4 ML VIAL IVP SCH (08:00)
[2020-11-25 08:04] VITALS: BP_SYST 121
[2020-11-25] MEDS: METOPROLOL TARTRATE 50 MG TABLET PO SCH ×2 (08:25→21:07)
[2020-11-25] MEDS: PRAMIPEXOLE DI-HCL 1 MG TABLET PO SCH ×3 (08:25→21:00)
[2020-11-25] MEDS: ATORVASTATIN 20 MG TABLET PO SCH (08:26)
[2020-11-25] MEDS: AMIODARONE HCL 200 MG TABLET PO SCH ×2 (08:27→21:07)
[2020-11-25] MEDS: APIXABAN 2.5 MG TABLET PO SCH ×2 (08:28→21:05)
[2020-11-25] MEDS: FUROSEMIDE 40 MG/4 ML VIAL IVP SCH ×3 (08:36→21:08)
[2020-11-25] MEDS: INSULIN GLARGINE 100 UNITS/ML 10 ML VIAL SUBCUT SCH (08:37)
[2020-11-25] MEDS ORDERED: DILTIAZEM HCL 120 MG CAP.SR.24H PO SCH (09:00)
[2020-11-25 09:26] LABS: BASOPHILS % (AUTO) 0.2 % (0.0-2.0); EOSINOPHILS # (AUTO) 0.2 K/uL (0.0-0.4); EOSINOPHILS % (AUTO) 1.2 % (0.0-4.0); HEMATOCRIT 23.5 % (36-54); HEMOGLOBIN 7.5 g/dL (14.0-18.0); LYMPHOCYTES # (AUTO) 0.9 K/uL (1.0-5.5); LYMPHOCYTES % (AUTO) 5.4 % (20.5-51.5); MEAN CORPUSCULAR HEMOGLOBIN 31 pg (27-31); MEAN CORPUSCULAR HGB CONC 32 % (32-36); MEAN CORPUSCULAR VOLUME 96 fL (79.0-98.0); MONOCYTES # (AUTO) 0.9 K/uL (0.0-1.0); MONOCYTES % (AUTO) 5.7 % (1.7-9.3); NEUTROPHILS # (AUTO) 13.9 K/uL (1.8-7.7); NEUTROPHILS % (AUTO) 87.5 % (40.0-70.0); PLATELET COUNT (AUTO) 225 K/uL (130-430); RED BLOOD CELL COUNT(AUTO) 2.46 MIL/uL (4.2-6.2); RED CELL DISTRIBUTION WIDTH 17.3 % (9.0-15.0); WHITE BLOOD COUNT (AUTO) 15.9 K/uL (4.8-10.8)
[2020-11-25] MEDS ORDERED: FUROSEMIDE 20 MG/2 ML VIAL IVP ONE (09:45)
[2020-11-25] MEDS: INSULIN REGULAR, HUMAN 100 UNITS/ML, 10 ML VIAL (humuLIN R) SUBCUT PRN ×3 (11:36→21:13)
[2020-11-25 12:00] VITALS: BP_SYST 127
[2020-11-25 18:15] VITALS: BP_SYST 124
[2020-11-25 19:00] VITALS: BP_SYST 129
[2020-11-25] MEDS ORDERED: PRIMIDONE 250 MG TABLET PO SCH (21:00)
[2020-11-26 00:30] VITALS: BP_SYST 101
[2020-11-26] MEDS: PIPERACILLIN/TAZO 3.375/DEX-IS 50 ML IV SCH ×2 (05:26)
[2020-11-26] MEDS: LEVOTHYROXINE SODIUM 0.05 MG TABLET PO SCH (06:32)
[2020-11-26] MEDS: INSULIN REGULAR, HUMAN 100 UNITS/ML, 10 ML VIAL (humuLIN R) SUBCUT PRN ×2 (06:38→11:09)
[2020-11-26 07:20] LABS: BASOPHILS # (AUTO) 0.1 K/uL (0.0-0.2); BASOPHILS % (AUTO) 0.3 % (0.0-2.0); EOSINOPHILS # (AUTO) 0.3 K/uL (0.0-0.4); EOSINOPHILS % (AUTO) 1.7 % (0.0-4.0); HEMATOCRIT 23.7 % (36-54); HEMOGLOBIN 7.8 g/dL (14.0-18.0); LYMPHOCYTES % (AUTO) 5.4 % (20.5-51.5); MEAN CORPUSCULAR HEMOGLOBIN 31 pg (27-31); MEAN CORPUSCULAR HGB CONC 33 % (32-36); MEAN CORPUSCULAR VOLUME 94 fL (79.0-98.0); MONOCYTES # (AUTO) 1.4 K/uL (0.0-1.0); NEUTROPHILS # (AUTO) 15.2 K/uL (1.8-7.7); NEUTROPHILS % (AUTO) 84.6 % (40.0-70.0); PLATELET COUNT (AUTO) 263 K/uL (130-430); RED BLOOD CELL COUNT(AUTO) 2.53 MIL/uL (4.2-6.2); RED CELL DISTRIBUTION WIDTH 17.2 % (9.0-15.0)
[2020-11-26 07:34] VITALS: BP_SYST 112
[2020-11-26 07:51] LABS: ALANINE AMINOTRANSFERASE 67 U/L (12-78); ALBUMIN 2.8 g/dL (3.4-4.8); ANION GAP 12 (5-15); ASPARTATE AMINOTRANSFERASE 27 U/L (10-37); CALCIUM 8.6 mg/dL (8.4-11.0); CHLORIDE 98 mmol/L (98-107); CREATININE 2.04 mg/dL (0.55-1.30); GLUCOSE 236 mg/dL (70-99); POTASSIUM 4.4 mmol/L (3.5-5.1); SODIUM SERUM 132 mmol/L (136-145); TOTAL BILIRUBIN 0.3 mg/dL (0.0-1.0); UREA NITROGEN, BLOOD 66 mg/dL (8-21)
[2020-11-26] MEDS: METOPROLOL TARTRATE 50 MG TABLET PO SCH (08:38)
[2020-11-26] MEDS: ATORVASTATIN 20 MG TABLET PO SCH (08:38)
[2020-11-26] MEDS: AMIODARONE HCL 200 MG TABLET PO SCH (08:39)
[2020-11-26] MEDS: PRAMIPEXOLE DI-HCL 1 MG TABLET PO SCH (08:40)
[2020-11-26] MEDS: APIXABAN 2.5 MG TABLET PO SCH (08:41)
[2020-11-26] MEDS: FUROSEMIDE 40 MG/4 ML VIAL IVP SCH (08:50)
[2020-11-26] MEDS: INSULIN GLARGINE 100 UNITS/ML 10 ML VIAL SUBCUT SCH (08:50)
[2020-11-26] MEDS ORDERED: POTA-10 PO (10:18)
[2020-11-26] MEDS ORDERED: FURO-149 PO (10:18)
[2020-11-26] MEDS ORDERED: METO-442 PO (10:18)
[2020-11-26] MEDS ORDERED: AMIO200T66 PO (10:20)
[2020-11-26 12:00] VITALS: BP_SYST 106
[2020-11-26 12:54] VITALS: BP_SYST 112
== END 2020-11-26 13:36 | disposition home health service (06) | DRG 871 ==
LOC: SED 00:49 → SIC 04:45 → STU 11-21 13:57
PROVIDERS: ADMIT Internal Medicine Hospice and Palliative Medicine; ATTEND Internal Medicine Hospice and Palliative Medicine
DX: A41.9 Sepsis, unspecified organism (principal); N17.0 Acute kidney failure with tubular necrosis; I21.A1 Myocardial infarction type 2; I50.43 Acute on chronic combined systolic (congestive) and diastolic (congestive) heart failure; J96.10 Chronic respiratory failure, unspecified whether with hypoxia or hypercapnia; I13.0 Hypertensive heart and chronic kidney disease with heart failure and stage 1 through stage 4 chronic kidney disease, or unspecified chronic kidney disease; E87.1 Hypo-osmolality and hyponatremia; M80.88XA Other osteoporosis with current pathological fracture, vertebra(e), initial encounter for fracture; D64.9 Anemia, unspecified; E03.9 Hypothyroidism, unspecified; E11.65 Type 2 diabetes mellitus with hyperglycemia; E78.00 Pure hypercholesterolemia, unspecified; E78.5 Hyperlipidemia, unspecified; Z20.822 Contact with and (suspected) exposure to COVID-19; I25.10 Atherosclerotic heart disease of native coronary artery without angina pectoris; E11.22 Type 2 diabetes mellitus with diabetic chronic kidney disease; N18.9 Chronic kidney disease, unspecified; E87.5 Hyperkalemia; I48.0 Paroxysmal atrial fibrillation; J43.9 Emphysema, unspecified; I25.5 Ischemic cardiomyopathy; T38.0X5A Adverse effect of glucocorticoids and synthetic analogues, initial encounter; M19.90 Unspecified osteoarthritis, unspecified site; Z79.01 Long term (current) use of anticoagulants; Z95.1 Presence of aortocoronary bypass graft; Z79.4 Long term (current) use of insulin
CPT/HCPCS: 36415; 36600; 70450-TC; 71045; 71250-TC; 76376; 76770; 80048; 80053; 81000; 82272; 82306; 82533; 82550; 82553; 82803-TC; 82962; 83540; 83550; 83605; 83735; 83880; 84100; 84484; 85025; 85610-TC; 85651-TC; 86140; 87040-TC; 87081; 93005; 93306; 94640; 94760; 96361; 96365; 96367; 96375; 97112-GP; 97116-GP; 97163-GP; 97530-GP; 99291; G0378; J1815; J1885; J1940; J1956; J2543; J2930; J3370; J3475; J3490; J7050; J7060; J7613; P9041